=== PATIENT | male | born 1990 | race Caucasian/White ===

== ENCOUNTER 2018-05-31 14:55 | Emergency (ER) | payer OTHER ==
[2018-05-31 15:15] VITALS: BP 132/70; PULSE 78; RESP 18; TEMP 97.5; O2SAT 99
--- NOTE | 2018-05-31 15:29 | ED PDOC ---
HPI: General Adult Time Seen by Provider: 05/31/18 15:13 Chief Complaint (Nursing): Med Refill Chief Complaint (Provider): Blood work History Per: Patient History/Exam Limitations: no limitations Severity: Moderate Additional Complaint(s): 27 year old male with no past medical history presents to the ED for prophylaxis. Patient reports that he participated in unprotected oral sex 2x nights ago and is now concerned that he may have HIV. Patient does not know the HIV status of his sexual partner. Patient contacted the [facility] department and spoke with who prescribed him a 2x day course treatment for Truvada and Trivicay. Patient was informed that he would be receiving a call tomorrow for a follow up appointment and for the completion of the 28x day regimen of aforementioned medications. Patient denies having testing tone. Patient reports taking the medication as soon as he got it. Patient reports also calling [place] [facility] and was informed that he should go to the ED nearest to him ([facility] as patient lives in [place]). Patient admits that he did not inform [place] [facility] that he had already spoken with the [facility]. Otherwise, patient denies having previous STD testing, dysuria, hematuria, penile discharge, rashes, or liver disease. PMD: None. Past Medical History Reviewed: Historical Data, Nursing Documentation, Vital Signs Vital Signs: Last Vital Signs Temp 97.5 F L 05/31/18 15:12 Pulse 78 05/31/18 15:12 Resp 18 05/31/18 15:12 BP 132/70 05/31/18 15:12 Pulse Ox 99 05/31/18 15:12 WALDEMAR Report Viewed: Yes - Medical History PMH: No Chronic Diseases - Family History Family History: States: No Known Family Hx - Social History Alcohol: Occasional Drugs: Denies - Allergies Allergies/Adverse Reactions: Allergies Allergy/AdvReac Type Severity Reaction Status Date / Time No Known Allergies Allergy Verified 05/31/18 15:15 Review of Systems ROS Statement: Except As Marked, All Systems Reviewed And Found Negative Genitourinary Male: Negative for: Dysuria, Hematuria, Penile Discharge Skin: Negative for: Rash Physical Exam - Reviewed Nursing Documentation Reviewed: Yes Vital Signs Reviewed: Yes - Physical Exam Appears: Positive for: Well, Non-toxic, No Acute Distress Head Exam: Positive for: ATRAUMATIC, NORMOCEPHALIC Skin: Positive for: Normal Color, Warm, Dry. Negative for: Rash Gastrointestinal/Abdominal: Positive for: Normal Exam, Soft. Negative for: Tenderness Neurologic/Psych: Positive for: Alert, Oriented (3x), Mood/Affect (anxious, but easily consolable) - Laboratory Results Result Diagrams: 05/31/18 16:05 05/31/18 16:05 - ECG O2 Sat by Pulse Oximetry: 99 (RA) Pulse Ox Interpretation: Normal Medical Decision Making Medical Decision Makin:13 Initial impression: 27 year old male in the ED for prophylaxis. Discussed case with [phone]) who confirmed that she did prescribe the patient the medications. Patient will be contacted tomorrow for further testing and completion of the 28x day regimen. states that she did not instruct the patient to come to the ED. Patient is currently requesting that bloodwork be done. Patient is informed that he must contact [facility] department as previously scheduled and to follow up for completion of antivirals and for further testing. Plan: * CMP * CBC with diff * chlamydia/GC RNA, TMA * rapid HIV screen * rapid plasma reagin * reevaluation --- Scribe Attestation: Documented Sanchez cShaffer, acting as a scribe for Lm Macias Provider Scribe Attestation: All medical record entries made by the Scribe were at my direction and personally dictated by me. I have reviewed the chart and agree that the record accurately reflects my personal performance of the history, physical exam, medical decision making, and the department course for this patient. I have also personally directed, reviewed, and agree with the discharge instructions and disposition. Disposition - Clinical Impression Clinical Impression: At risk for sexually transmitted disease due to unprotected sex - Patient ED Disposition Is Patient to be Admitted: No - Disposition Referrals: [facility] [Outside] Disposition: Routine/Home Disposition Time: 18:11 Condition: STABLE Additional Instructions: FOLLOW UP WITH DEPARTMENT OF HEALTH PREVIOUSLY DISCUSSED WITHOUT FAIL RETURN TO ED IMMEDIATELY FOR ANY CONCERNS OR QUESTIONS LEAH HANKS, thank you for letting us take care of you today. Your provide r was Matthew Moya MD and you were treated for MEDICAL CLEARANCE. The emergency medical care you received today was directed at your acute symptoms. If you were prescribed any medication, please fill it and take as directed. It may take several days for your symptoms to resolve. Return to the Emergency Department if your symptoms worsen, do not improve, or if you have any other problems. Please contact your doctor or call one of the physicians/clinics you have been referred to that are listed on the Patient Visit Information form that is included in your discharge packet. Bring any paperwork you were given at discharge with you along with any medications you are taking to your follow up visit. Our treatment cannot replace ongoing medical care by a primary care provider outside of the emergency department. Thank you for allowing the [facility] team to be part of your care today. If you had an X-Ray or CT scan: A Radiologist will review the ED reading if any change in treatment is needed we will contact you. If you had a blood, urine, or wound culture: It will take several days for the results, if any change in treatment is needed we will contact you. If you had an STI test: It will take 48 hours for the results. Please call after 1 week if you have not heard back. Instructions: Post-Exposure Prophylaxis Forms: [employer] ([place]ib[place]ian)
[2018-05-31 16:42] LABS: BASO % 0.6 % (0.0-2.0); EOS # 0.1 K/uL (0.0-0.7); EOS % 2.2 % (0.0-4.0); HEMOGLOBIN 14.8 g/dL (12.0-18.0); LYMPH # 1.6 K/uL (1.0-4.3); LYMPH % 32.9 % (20.0-40.0); MEAN CELL VOLUME 92.1 fl (80.0-94.0); MEAN CORPUSCULAR HEMOGLOBIN 31.3 pg (27.0-31.0); MEAN PLATELET VOLUME 7.9 fl (7.2-11.7); MONO # 0.5 K/uL (0.0-0.8); MONO % 10.8 % (0.0-10.0); NEUT # 2.7 K/uL (1.8-7.0); NEUT % 53.5 % (50.0-75.0); NRBC % 0.1 % (0.0-0.0); RBC 4.72 Mil/uL (4.40-5.90); RED CELL DISTRIBUTION WIDTH 12.9 % (11.5-14.5)
[2018-05-31 16:51] LABS: ALB/GLOB RATIO 1.4 (1.0-2.1); ALBUMIN 4.5 g/dL (3.5-5.0); ALT/SGPT 27 U/L (21-72); AST/SGOT 26 U/L (17-59); BLOOD UREA NITROGEN 15 mg/dl (9-20); CALCIUM 9.8 mg/dL (8.4-10.2); GFR NON-AFRICAN AMERICAN > 60
== END 2018-05-31 18:17 | disposition home or self-care (01) ==
LOC: H.ER 14:55
DX: Z11.3 Encounter for screening for infections with a predominantly sexual mode of transmission (principal)